=== PATIENT | male | born 1970 ===

== ENCOUNTER 2025-02-08 17:48 | Inpatient (IN) | payer BC, MEDICAID ==
[2025-02-08] MEDS ORDERED: HALOPERIDOL LACTATE 5 MG/ML 1 ML VIAL IM PRN (17:53)
[2025-02-08] MEDS ORDERED: MAG HYDROX/AL HYDROX/SIMETH 355 ML BOTTLE PO PRN (17:53)
[2025-02-08] MEDS ORDERED: MAGNESIUM HYDROXIDE 2,400 MG/30 ML CUP PO PRN (17:53)
[2025-02-08] MEDS ORDERED: LORazepam 1 MG TAB PO PRN ×2 (17:53)
[2025-02-09] MEDS: THIAMINE 100 MG TAB PO SCH (08:37)
[2025-02-09] MEDS: MULTIVITAMINS, THERA 1 EACH TAB PO SCH (08:37)
[2025-02-09] MEDS: NICOTINE 14MG/24HR PATCH TRANSDERM SCH (08:38)
[2025-02-09] MEDS: FOLIC ACID 1 MG TAB PO SCH (08:38)
--- NOTE | 2025-02-09 12:49 | P.HP ---
Psychiatric H&P - . H&P Date: 02/09/25 History & Physical: Allergies Allergy/AdvReac Type Severity Reaction Status Date / Time No Known Allergies Allergy Verified 02/08/25 17:53 Vital Signs Temp 97.8 F 02/09/25 08:38 Pulse 110 H 02/09/25 08:38 Resp 20 02/09/25 08:38 BP 125/84 02/09/25 08:38 Pulse Ox 97 02/09/25 08:38 FiO2 Intake & Output 02/08/25 02/09/25 02/09/25 18:59 06:59 18:59 Weight 74.992 kg 86.1 kg 02/09/25 12:33 IDENTIFYING DATA: Patient is a 54-year-old male that currently lives by himself working in [employer] HPI: The patient presented to the hospital under CERT due to bizarre behavior after being released from rehab. The patient per the CERT was screaming about the end of the world and making statements that he was Dequ[place]. Upon meeting the patient he notes that those thoughts were wrong and he blamed the Effexor being switched from 75 mg to 225 mg. The patient did display pressured speech and intense energy during the interview. However, he was linear and logical. The patient denies any current racing thoughts or mood swings. He notes that he is not depressed or anxious. He denies any auditory or visual hallucinations. He notes that he is not paranoid. He is getting up to 6 hours of sleep at night. He denies any problems with energy, appetite or concentration. He denies any feelings of helplessness, hopelessness or worthlessness. He denies any bouts of crying or guilt or shame. He denies any suicidal or homicidal ideations. He denies any access to guns. Stressors: None Collateral: The patient gave me the patient's mother's telephone number we gave me permission to contact her. Arabella notes that he has never been like this before denies any history of him having mood swings, racing thoughts, elevated delusional behavior. She feels that this is mainly from the medication. She does note that when he was using cannabis he would become odd. Psychiatric review of systems: Bipolar disorder-patient is displaying some pressured speech and went from elation to crying during the session. He denied any racing thoughts or elevated moods in the past. OCD-negative PTSD-negative Anxiety-patient has a history of chronic worrying notes that he has no anxiety at this time. Psychosis-patient denies any auditory or visual hallucinations or paranoia at this time. PAST PSYCHIATRIC HISTORY: The patient has a history of Depression and Anxiety. The patient was on Effexor but has discontinued this. The patient has a history of being on Paxil, Prozac, Wellbutrin, Lexapro, Ativan, Xanax and Klonopin for over 10 years recently discontinued February 09, 2025. The patient has 2 prior admissions for depression. The patient currently follows up with Dr. Arora for her mental health needs. The patient denies any prior history of suicide attempts. The patient denies any trauma in childhood including verbal, mental or sexual. The patient denies any cutting or burning behaviors. The patient denies any legal history. PMH: Negative ALLERGIES: No known drug allergies CHEMICAL DEPENDENCY HISTORY: Caffeine-positive Alcohol-8 beers and 4 shots per sitting daily. The patient recently completed rehab after 28 days. Cannabis-Daily recently completed rehab after 28 days. FAMILY PSYCHIATRIC/SUBSTANCE USE HISTORY: Father committed suicide and multiple family members suffer from mental health problems SOCIAL HISTORY: The patient was born and raised in [place] and notes that his childhood was "traumatic". He notes that he went to some college and had good grades. 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 He lives by himself. He denies any prior marriages or children. He was raised Christian and considers himself jainism. He denies any service.. MENTAL STATUS EXAM: General Appearance: Patient appears to be his stated age is alert, directable, and attempts to cooperate. Patient appears to have good hygiene and grooming. Behavior: Patient is seated without any agitated behavior. Patient did not display a switch of emotions when he noted that more likely he will be discharged tomorrow. Speech: Patient's speech is fluent and pressured. Mood/Affect: Patient reports their mood is anxious, affect is congruent and constricted. Suicidality/Homicidality: Patient denies having any homicidal ideation intent or plan. Denies any suicidal ideations intent or plan Perceptions: Patient denies any visual hallucinations and denies any auditory hallucinations Though content/process: There is no evidence of any delusional thought content and thought process is linear and goal-directed. Memory and concentration: AOX3, grossly intact for the purposes of this session. Can spell "WORLD" backwards Judgment and insight: Fair/Fair STRENGTHS/WEAKNESSES: strength is that patient is resilient. Weakness is that patient has poor judgment and is impulsive INTELLECT: Average Diagnosis: Substance/Medicine induced bipolar and related disorders Cannabis use disorder in partial remission Alcohol use disorder in partial remission Major depressive disorder recurrent in remission Unspecified anxiety disorder Assessment: 54-year-old male presenting with bizarre behaviors he has never had before. He recently completed 28 days of rehab. The patient's behavior is congruent with morning likely either a substance or medication induced bipolar presentation. Per the patient's mother he has never had episodes like this before. He does have a history of Major depressive disorder and anxiety. There is some suspicions possibly that he did try another gummy and had too much which caused some of the symptoms but this is unclear at this point. It could be Effexor driven and the patient has low-grade bipolar disorder but this is not proven as well since the patient has not had any documented manic episodes. PLAN: -Patient is admitted under Involuntary status to MHU for stabilization of psychiatric symptoms and safety. Patient has signed adult voluntary form and medication consent and is placed in patient's chart. -Medications : On hold consider BuSpar if patient has been abusing cannabis and going through withdrawal -Ativan and Haldol PRN for agitation/aggression -Patient was informed of the risks, benefits and side effects of the medication and patient verbally consented to taking the medications. Patient signed med consent form and was placed in chart. -Internal Medicine consult to perform medical evaluation and physical. -NRT -nicotine patch -SW on board for discharge planning. Encourage patient to participate in groups to work on coping skills.
[2025-02-09] MEDS: IBUPROFEN 600 MG TAB PO PRN (22:24)
[2025-02-09] MEDS: LORazepam 1 MG TAB PO PRN (22:46)
--- NOTE | 2025-02-09 22:46 | P.MDCNMH ---
History of Present Illness H&P Date: 02/09/25 Past Medical History Additional Past Medical History / Comment(s): inguinal hernia History of Any Multi-Drug Resistant Organisms: None Reported Past Surgical History: No Surgical Hx Reported Past Psychological History: Depression Smoking Status: Never smoker Medications and Allergies Allergies Allergy/AdvReac Type Severity Reaction Status Date / Time No Known Allergies Allergy Verified 02/08/25 17:53 Physical Exam Vitals: Vital Signs Temp Pulse Resp BP Pulse Ox 02/09/25 08:38 97.8 F 110 H 20 125/84 97
[2025-02-10 07:31] LABS: Basophils # (A) 0.05 10*3/uL (0.00-0.10); Basophils % (A) 0.7 %; Eosinophils # (A) 0.17 10*3/uL (0.04-0.35); Eosinophils % (A) 2.3 %; HCT 44.0 % (39.6-50.0); HGB 15.7 g/dL (13.0-17.0); Lymphocytes # (A) 1.83 10*3/uL (0.90-5.00); Lymphocytes % (A) 24.3 %; MCH 33.1 pg (27.0-32.0); MCHC 35.7 g/dL (32.0-37.0); MCV 92.8 fL (80.0-97.0); Monocytes # (A) 0.67 10*3/uL (0.20-1.00); Monocytes % (A) 8.9 %; Neutrophils # (A) 4.78 10*3/uL (1.80-7.70); Neutrophils % (A) 63.4 %; Platelet Count 200 10*3/uL (140-440); RBC 4.74 10*6/uL (4.40-5.60); RDW 11.7 % (11.5-14.5); WBC 7.53 10*3/uL (4.50-10.00)
--- NOTE | 2025-02-10 07:34 | P.MDCNMH ---
History of Present Illness H&P Date: 02/09/25 54-year-old male with alcohol abuse and dependence Patient coming in for mental health evaluation after finishing rehab for alcohol detox Patient denies any medical concerns at this time Patient denies any fevers chills nausea vomiting abdominal pain chest pain trouble breathing denies any dizziness lightheadedness denies any urinary changes or bowel habit changes denies any focal neurodeficits Review of systems All systems reviewed with pertinent positive negatives as per HPI on exam Constitutional: No acute distress, conversant, pleasant Eyes: Anicteric sclerae, moist conjunctiva, Pupils equal round reactive to light Neck: Supple, no masses, or JVD No carotid bruits No thyromegaly Lungs: Clear to auscultation Clear to percussion Normal respiratory effort, no accessory muscle use Cardiovascular: Heart regular in rate and rhythm, No murmurs, gallops, or rubs No peripheral edema Abdominal: Soft Nontender, no guarding, rebound or rigidity Abdomen moving with respiration Tenderness to percussion over the costovertebral angle left Extremities: No digital cyanosis No clubbing Pedal pulses intact and symmetrical Radial pulses intact and symmetrical No calf tenderness Psychiatric: Alert and oriented to person, place and time Neuro Muscles Strength 5/5 in all 4 extremities Sensation to light touch grossly present throughout Cranial nerves II-XII grossly intact Assessment and plan History of alcohol abuse Patient counseled to cut back on alcohol" Thiamine p.o. daily CBC reviewed unremarkable Thank you for this consultation Past Medical History Additional Past Medical History / Comment(s): inguinal hernia History of Any Multi-Drug Resistant Organisms: None Reported Past Surgical History: No Surgical Hx Reported Past Psychological History: Depression Smoking Status: Never smoker Medications and Allergies Allergies Allergy/AdvReac Type Severity Reaction Status Date / Time No Known Allergies Allergy Verified 02/08/25 17:53 Physical Exam Vitals: Vital Signs Temp Pulse Resp BP Pulse Ox 02/09/25 21:00 98.3 F 103 H 18 121/81 96 02/09/25 08:38 97.8 F 110 H 20 125/84 97 Cranial Nerve Examination - Cranial Nerves Cranial Nerve II- Optic: Intact Cranial Nerve III- Oculomotor: Intact Cranial Nerve IV- Trochlear: Intact Cranial Nerve V- Trigeminal: Intact Cranial Nerve - Abducens: Intact Cranial Nerve VII- Facial: Intact Cranial Nerve VIII- Auditory: Intact Cranial Nerve IX- Glossopharyngeal: Intact Cranial Nerve X- Vagus: Intact Cranial Nerve XI- Accessory: Intact Cranial Nerve XII- Hypoglossal: Intact Results CBC & Chem 7: 02/10/25 06:59 Labs: Abnormal Lab Results - Last 24 Hours (Table) 02/10/25 Range/Units 06:59 MCH 33.1 H (27.0-32.0) pg MPV 8.7 L (9.5-12.2) fL
[2025-02-10 07:48] LABS: ALT 30 U/L (4-49); AST 33 U/L (17-59); African American GFR (CKD) >90 (>60 ml/min/1.73 sqM); Albumin 4.2 g/dL (3.5-5.0); Alkaline Phosphatase 82 U/L (38-126); Anion Gap 8 mmol/L; Blood Urea Nitrogen 17 mg/dL (9-20); Calcium 8.8 mg/dL (8.4-10.2); Carbon Dioxide 28 mmol/L (22-30); Chloride 104 mmol/L (98-107); Glucose 117 mg/dL (74-99); Magnesium 2.1 mg/dL (1.6-2.3); Non-African American GFR(CKD) >90 (>60 ml/min/1.73 sqM); Potassium 4.2 mmol/L (3.5-5.1); Sodium 140 mmol/L (137-145); Total Protein 6.9 g/dL (6.3-8.2)
--- NOTE | 2025-02-10 13:23 | P.PN ---
Progress Note - Text Progress Note Date: 02/10/25 IDENTIFYING DATA: Patient is a 54-year-old male that currently lives by himself working in [employer] HPI: The patient presented in the hallway and accompany me to the office. Currently he denies any depression or anxiety. He notes that he has not used any cannabinoids since being discharged from rehab. He notes no suicidal or homicidal ideations. He denied any delusional thoughts and continues to contemplate why he would have such thoughts. He notes that he had trouble sleeping last night due to worries. He notes that his energy is a little high. He denies any problems with appetite and concentration. Stressors: None MENTAL STATUS EXAM: General Appearance: Patient appears to be his stated age is alert, directable, and attempts to cooperate. Patient appears to have good hygiene and grooming. Behavior: Patient is seated without any agitated behavior. Patient did not display a switch of emotions when he noted that more likely he will be discharged tomorrow. Speech: Patient's speech is fluent and pressured. Mood/Affect: Patient reports their mood is anxious, affect is congruent and constricted. Suicidality/Homicidality: Patient denies having any homicidal ideation intent or plan. Denies any suicidal ideations intent or plan Perceptions: Patient denies any visual hallucinations and denies any auditory hallucinations Though content/process: There is no evidence of any delusional thought content and thought process is linear and goal-directed. Memory and concentration: AOX3, grossly intact for the purposes of this session. Can spell "WORLD" backwards Judgment and insight: Fair/Fair STRENGTHS/WEAKNESSES: strength is that patient is resilient. Weakness is that patient has poor judgment and is impulsive INTELLECT: Average Diagnosis: Substance/Medicine induced bipolar and related disorders Cannabis use disorder in partial remission Alcohol use disorder in partial remission Major depressive disorder recurrent in remission Unspecified anxiety disorder Assessment: It appears that the patient has not had any cannabinoids since released from his rehab facility. Therefore more likely the presentation was related to the Effexor. Patient will be placed on BuSpar for his anxiety. He states that he is not ready to return home as of yet he would like to be more stable. PLAN: -Patient is admitted under Involuntary status to MHU for stabilization of psychiatric symptoms and safety. Patient has signed adult voluntary form and medication consent and is placed in patient's chart. -Medications : Start BuSpar 10 mg take 1 tablet by mouth twice daily for anxiety. Patient has been explained risk and benefits. -Ativan and Haldol PRN for agitation/aggression -Patient was informed of the risks, benefits and side effects of the medication and patient verbally consented to taking the medications. Patient signed med consent form and was placed in chart. -Internal Medicine consult to perform medical evaluation and physical. -NRT -nicotine patch -SW on board for discharge planning. Encourage patient to participate in groups to work on coping skills.
[2025-02-11] MEDS: ACETAMINOPHEN TAB 325 MG TAB PO PRN (09:53)
--- NOTE | 2025-02-11 13:22 | P.PN ---
Progress Note - Text Progress Note Date: 02/11/25 Interval History: Patient was seen sitting in the gutiérrez and was directable and agreeable to speak with typewriter assembler in the gutiérrez privately. Patient displayed manic symptoms including some grandiosity, easily irritable, poor sleep overnight. He talked about his desire to become a therapist now he has been trying to help out several other patients here on the unit, becoming frustrated when patients do not take their stay here seriously. He was encouraged to focus on himself and to distance himself from triggers from his peers. He was fixated on being discharged today however was agreeable with starting a mood stabilizer given the current symptoms. He does admit to poor sleep overnight, displaying mood lability during conversation however was future oriented, talked about his desire to return to work. He reports a history of alcohol use disorder and cannabis use disorder however has been clean since being discharged from rehab. At this time patient denies any suicidal or homicidal ideations, intent or plan. Patient denies any auditory, visual hallucinations and denies any paranoia. Patient denies any side effects from the medications and has been compliant with meds. Mental Status Exam: General Appearance: Patient appears to be stated age is alert, directable, and cooperative. Behavior: Patient is calmly seated without any agitated behavior. He did display low frustration tolerance, tearful at times Speech: Patient's speech is fluent and nonpressured. Mood/Affect: Mood is improving mildly, affect is congruent and expansive, labile. Suicidality/Homicidality: Patient denies having any suicidal or homicidal ideation intent or plan. Perceptions: Patient denies any visual hallucinations and denies any auditory hallucinations Though content/process: There is evidence of grandiosity, thought process is otherwise linear Memory and concentration: AOX3, grossly intact for the purposes of this session Judgment and insight: Improving mildly Assessment Substance-induced bipolar disorder Rule out bipolar 1 disorder Cannabis use disorder Alcohol use disorder Anxiety, unspecified Nicotine dependence Plan: -Patient continues to meet criteria for inpatient psychiatric admission for symptom stabilization and safety. Patient has signed adult voluntary form and medication consent and was placed in patient's chart. -Medications: Start Zyprexa 10 mg at bedtime for mood stabilization, continue BuSpar 10 mg twice daily for anxiety -When necessary Ativan and Haldol for agitation/aggression. -Labs: Reviewed, grossly wnl -NRT - nicotine patch -SW on board for discharge planning. Encouraged the patient to participate in milieu. Anticipate discharge early next week pending stabilization in mood/manic symptoms
[2025-02-11] MEDS: OLANZapine 10 MG TAB PO SCH (20:36)
--- NOTE | 2025-02-13 20:18 | P.PN ---
Progress Note - Text Progress Note Date: 02/12/25 Interval History: Patient was seen active on the unit with symptoms of toney including elevated e nergy, happy mood, verbose and mildly pressured but redirectable. He is recorded as having slept about 6 hours last night as of 5am. He claims he slept 10 hours last night. Insight appears poor. He states his mood is "great!" and he has spent the day playing games on the unit. At this time patient denies any suicidal or homicidal ideation, intent or plan. Patient denies any auditory, visual hallucinations and denies any paranoia. Patient denies any side effects from the medications and has been compliant with meds. Mental Status Exam: General Appearance: Patient appears to be stated age, tall, well-nourished male, good hygiene/grooming. Behavior: Patient is moving around his room and the hallway quickly, elevated energy, verbose but happy, polite and redirectable Speech: Patient's speech is fluent and non-pressured. Mood/Affect: Mood is elevated "great!", affect is expansive. Suicidality/Homicidality: Patient denies having any suicidal or homicidal ideation intent or plan. Perceptions: Patient denies any visual hallucinations and denies any auditory hallucinations Though content/process: There is evidence of grandiosity, thought process is otherwise linear Memory and concentration: AOX3, grossly intact for the purposes of this session Judgment and insight: Improving mildly Assessment/Plan: -Continue with current diagnosis. -Patient continues to meet criteria for inpatient psychiatric admission for symptom stabilization and safety. -Medications: Zyprexa 10 mg QHS was started last night for mood stabilization and will continue at this dose for now. -When necessary Ativan and Haldol for agitation/aggression. -Will continue to monitor for compliance and response to medications. -Encouraged the patient to participate in milieu.
--- NOTE | 2025-02-13 20:25 | P.PN ---
Progress Note - Text Progress Note Date: 02/13/25 Interval history: Patient was seen active on the unit again today, walking quickly in and out of his room and in the hallway, impulsive, appears eager to show me pages of coloring books that he has neatly colored with crayons. He has several pages of his coloring neatly posted on his wall. His room is neat and organized, bed is made. His sleep is recorded as only 3 hours for last night, he was up at night, restless, was given Ativan 1 mg po x1 at about 1:43 am but still slept only about 3 hours. He continues to present with other symptoms of toney including elevated energy, happy mood, verbose and mildly pressured but redirectable. Insight appears poor. He states his mood is "great!" At this time patient denies any suicidal or homicidal ideation, intent or plan. Patient denies any auditory, visual hallucinations and denies any paranoia. Patient denies any side effects from the medications and has been compliant with meds. Mental Status Exam: General Appearance: Patient appears to be stated age, tall, well-nourished male, good hygiene/grooming. Behavior: Patient is moving around his room and the hallway quickly, elevated energy, verbose but happy, polite and redirectable Speech: Patient's speech is fluent and non-pressured. Mood/Affect: Mood is elevated "great!", affect is expansive. Suicidality/Homicidality: Patient denies having any suicidal or homicidal ideation intent or plan. Perceptions: Patient denies any visual hallucinations and denies any auditory hallucinations Though content/process: There is evidence of grandiosity, thought process is otherwise linear Memory and concentration: AOX3, grossly intact for the purposes of this session Judgment and insight: Improving mildly Assessment/Plan: -Continue with current diagnosis. -Patient continues to meet criteria for inpatient psychiatric admission for symptom stabilization and safety. -Medications: Increase Zyprexa from 10 mg QHS to 15 mg QHS for mood stabilization. Monitor for medication compliance and for any psychotropic medication side effects. Will continue to monitor ongoing response to treatment. Encouraged participation in milieu.
[2025-02-14 11:19] VITALS: BP 131/86; PULSE 124; RESP 20; TEMP 98.1
--- NOTE | 2025-02-14 14:12 | P.DS ---
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 Vasquez "HPI: The patient presented to the hospital under CERT due to bizarre behavior after being released from rehab. The patient per the CERT was screaming about the end of the world and making statements that he was [place]. Upon meeting the patient he notes that those thoughts were wrong and he blamed the Effexor being switched from 75 mg to 225 mg. The patient did display pressured speech and intense energy during the interview. However, he was linear and logical. The patient denies any current racing thoughts or mood swings. He notes that he is not depressed or anxious. He denies any auditory or visual hallucinations. He notes that he is not paranoid. He is getting up to 6 hours of sleep at night. He denies any problems with energy, appetite or concentration. He denies any feelings of helplessness, hopelessness or worthlessness. He denies any bouts of crying or guilt or shame. He denies any suicidal or homicidal ideations. He denies any access to guns. Stressors: None Collateral: The patient gave me the patient's mother's telephone number we gave me permission to contact her. Arabella notes that he has never been like this before denies any history of him having mood swings, racing thoughts, elevated delusional behavior. She feels that this is mainly from the medication. She does note that when he was using cannabis he would become odd. Psychiatric review of systems: Bipolar disorder-patient is displaying some pressured speech and went from elation to crying during the session. He denied any racing thoughts or elevated moods in the past. OCD-negative PTSD-negative Anxiety-patient has a history of chronic worrying notes that he has no anxiety at this time. Psychosis-patient denies any auditory or visual hallucinations or paranoia at this time." Hospital course: Upon admission to the unit patient was directable and agreeable to commence treatment and signed adult voluntary form.. Patient got along well with other patients on the unit and followed unit protocol. Patient was compliant with the medications and denied any side effects throughout hospital course. Patient was started on Zyprexa and this was increased to 15 mg at bedtime for mood stabilization, BuSpar 10 mg twice daily for anxiety. Patient spoke of his stressors and engaged in therapy both group and individual. Patient was also seen by medical team for history and physical exam. Throughout the course of e hospitalization patient gradually improved with regards to mood, anxiety, sleep and returned back to their baseline level of functioning. On the day of discharge patient denied any suicidal or homicidal ideations intent or plan denied any auditory or visual hallucinations. The patient denied any access to guns or weapons. Patient denied any paranoia and did not endorse any delusions. Patient does have a significant history of substance abuse and was counseled on abstaining from all substances including alcohol and marijuana. Patient was offered however declined inpatient substance-abuse rehab. Patient was also counseled on the medications and need for regular compliance and was encouraged to follow-up with their outpatient appointment for mental health and also for primary care. Prior to discharge a family meeting will be arranged by adoption social worker to answer any questions and ensure safety upon discharge including making sure that guns/weapons are either removed from the home or locked away. Patient to be discharged home alone and will follow-up with [facility] Mental status exam: General Appearance: Patient appears to be stated age is alert, pleasant, and c ooperative. Patient is in no acute distress and has fair hygiene and grooming Behavior: Patient is calmly seated without any agitated behavior. Speech: Patient's speech is fluent and talkative Mood/Affect: Patient reports their mood is "good", affect is congruent and euthymic. Suicidality/Homicidality: Patient denies having any suicidal or homicidal ideation intent or plan. Perceptions: Patient denies any auditory or visual hallucinations. Though content/process: There is no evidence of any delusional thought content and thought process is linear and goal-directed. More future oriented Memory and concentration: AOX3, grossly intact for the purposes of this session. Can spell "WORLD" backwards correctly. Judgment and insight: Chronically poor, however has improved with guarded progn osis Impression: Substance/medication-induced bipolar disorder Rule out bipolar 1 disorder Cannabis use disorder Alcohol use disorder Anxiety, unspecified Nicotine dependence Plan: -Continue with discharge today as patient has improved and stabilized psychiatrically and is not currently an imminent threat to themself and/or others. Patient will remain at chronically elevated risk for harm to self and/or others due to their impulsivity and substance abuse. -Continue medications: Zyprexa 15 mg at bedtime, BuSpar 10 mg twice daily -Patient was counseled on the need for medication compliance and appropriate follow-up at mental health and also primary care for medical issues. Patient verbalized understanding and agreed. -Social work to help coordinate patients discharge today arrange for and conduct family meeting to ensure safety upon discharge and answer any questions/concerns. also to ensure safe home environment that guns/weapons are either removed from the home or locked away. Social work also to arrange for patients follow up appointments with [facility] counseling for psychiatric care along with follow up with primary care provider. -Patient counseled on abstaining from recreational drugs and marijuana and alcohol. Was informed/educated on the adverse effects on their physical and mental health. Patient verbally agreed and understood. Patient was offered substance abuse treatment however declined at this time. -Patient was instructed to return to the hospital or seek immediate medical care if their psychiatric or medical symptoms do worsen or reoccur. Abnormal Labs 02/10/25 02/10/25 06:59 06:59 MCH 33.1 H MPV 8.7 L Glucose 117 H Allergies Allergy/AdvReac Type Severity Reaction Status Date / Time No Known Allergies Allergy Verified 02/08/25 17:53 Vital Signs Temp 98.1 F 02/14/25 11:19 Pulse 124 H 02/14/25 11:19 Resp 20 02/14/25 11:19 BP 131/86 02/14/25 11:19 Pulse Ox 98 02/14/25 11:19 FiO2 Intake & Output 02/13/25 02/14/25 02/14/25 18:59 06:59 18:59 Weight 86 kg Patient Condition at Discharge: Stable Plan - Discharge Summary Discharge Rx Participant: Yes New Discharge Prescriptions: New busPIRone HCl [Buspar] 10 mg PO BID 30 Days #60 tab OLANZapine [ZyPREXA] 15 mg PO HS 30 Days #30 tab traZODone HCL [Desyrel] 50 mg PO HS PRN 30 Days #30 tab PRN Reason: Insomnia Folic Acid 1 mg PO DAILY 30 Days #30 tab Multivitamins, Thera [Multivitamin (formulary)] 1 each PO DAILY 30 Days #30 tab Thiamine [Vitamin B-1] 100 mg PO DAILY 30 Days #30 tab Discharge Medication List Folic Acid 1 mg PO DAILY 30 Days #30 tab 02/14/25 [Rx] Multivitamins, Thera [Multivitamin (formulary)] 1 each PO DAILY 30 Days #30 tab 02/14/25 [Rx] OLANZapine [ZyPREXA] 15 mg PO HS 30 Days #30 tab 02/14/25 [Rx] Thiamine [Vitamin B-1] 100 mg PO DAILY 30 Days #30 tab 02/14/25 [Rx] busPIRone HCl [Buspar] 10 mg PO BID 30 Days #60 tab 02/14/25 [Rx] traZODone HCL [Desyrel] 50 mg PO HS PRN 30 Days #30 tab 02/14/25 [Rx] Follow up Appointment(s)/Referral(s): [facility] [Other] - 02/17/25 3:00 pm (02/17 @ 15:00 paperwork 02/17 @ 15:30 intake appt facility will call you the day before appt to confirm please call back if unable to answer ot make appt ) [facility], [facility] [place] [Other] - 1 Week Patient Instructions/Handouts: Depression (DC), Anxiety (ED) Activity/Diet/Wound Care/Special Instructions: [facility] Discharge Info Avoid the use of street drugs and alcohol. Take all medications as prescribed. When you are in need of refills on your medications, please contact your outpatient medical provider and/or outpatient psychiatrist. Please go to your scheduled outpatient appointments for aftercare treatment. If symptoms return or become worse, call the crisis line at or and/or visit the nearest emergency room for assistance. National Suicide and Crisis Lifeline - call or text 988. Discharge Disposition: HOME SELF-CARE
== END 2025-02-14 18:58 | disposition home or self-care (01) | DRG 885 ==
LOC: 3MHU 20:51
PROVIDERS: ADMIT Psychiatry & Neurology Psychiatry; ATTEND Psychiatry & Neurology Psychiatry
DX: F31.9 Bipolar disorder, unspecified (principal); F10.20 Alcohol dependence, uncomplicated; F12.90 Cannabis use, unspecified, uncomplicated; F17.200 Nicotine dependence, unspecified, uncomplicated; F41.9 Anxiety disorder, unspecified; Z79.899 Other long term (current) drug therapy
CPT/HCPCS: 80053; 83735; 85025